=== PATIENT | male | born 1965 | race Hispanic/Latino ===

== ENCOUNTER → 2018-01-03 | Outpatient (CLI) | payer OTHER | END | disposition home or self-care (01) | LOC: OIH 10:06 | PROVIDERS: ATTEND Family Medicine | DX: Z02.71 Encounter for disability determination (principal); M51.36 Other intervertebral disc degeneration, lumbar region; M25.571 Pain in right ankle and joints of right foot; M25.512 Pain in left shoulder | CPT/HCPCS: 72100; 73030; 73600 ==